=== PATIENT | male | born 1950 | race Caucasian/White ===

== ENCOUNTER → 2016-12-29 | Outpatient (CLI) | payer OTHER, MEDICARE | LOC: BMCIMAGING 11:30 | PROVIDERS: ATTEND Internal Medicine | DX: R05 Cough (principal) ==

== ENCOUNTER → 2017-07-22 | Outpatient (CLI) | payer OTHER, MEDICARE | LOC: BMCIMAGING 15:51 | PROVIDERS: ATTEND Internal Medicine | DX: M19.071 Primary osteoarthritis, right ankle and foot (principal); M19.072 Primary osteoarthritis, left ankle and foot; Q74.2 Other congenital malformations of lower limb(s), including pelvic girdle | CPT/HCPCS: 73660; G0463 ==